=== PATIENT | female | born 1960 | race Caucasian/White ===

== ENCOUNTER 2022-05-30 12:32 | Outpatient (REF) | payer OTHER, SELFPAY ==
--- NOTE | ~2022-05-30 | XR_ITS ---
EXAMINATION: XR SINUSES CLINICAL INFORMATION: Left sinus drainage and TMJ pain. COMPARISON: None available. TECHNIQUE: Cross, Schulte, lateral, and SMV views of the paranasal sinuses are submitted. FINDINGS: Paranasal sinuses appear clear without air-fluid levels. No fractures are identified. No radiodense foreign bodies. XR/XR sinus min 3V IMPRESSION: Unremarkable examination.
== END 2022-05-30 12:33 | disposition home or self-care (01) ==
LOC: HO.XRAY 12:32
PROVIDERS: Visit Provider Nurse Practitioner
DX: M26.622 Arthralgia of left temporomandibular joint (principal); H92.09 Otalgia, unspecified ear
CPT/HCPCS: 70220